=== PATIENT | female | born 1980 | race African-American/Black ===

== ENCOUNTER 2016-06-19 13:59 | Emergency (ER) | payer BC, OTHER ==
[~2016-06-19] VITALS: Ht 172.7 cm; Wt 108.0 kg
[~2016-06-19 13:59] MED LIST: METO25TA7
[2016-06-19 14:02] VITALS: Ht 172.7 cm; Wt 108.0 kg
[2016-06-19] MEDS ORDERED: FAMOTIDINE 20 MG INJ IV STA (14:26)
[2016-06-19] MEDS ORDERED: ONDANSETRON 4 MG INJ IV STA (14:26)
[2016-06-19] MEDS ORDERED: SOD CHLORIDE 0.9% 1,000 ML IV STA (14:26)
[2016-06-19] MEDS ORDERED: morphine 4 MG/ML VIAL IV STA ×2 (14:26→16:24)
[2016-06-19 14:59] LABS: ALBUMIN 4.4 g/dl (3.3-4.9)
[2016-06-19 15:00] LABS: POTASSIUM 3.9 mmol/L (3.5-5.1)
[2016-06-19 15:02] LABS: ALBUMIN/GLOBULIN RATIO 1.41; BILIRUBIN,INDIRECT 0.5 mg/dl (0-1.1); BILIRUBIN,TOTAL 0.5 mg/dl (0.2-1.3); CREATININE 0.66 mg/dl (0.44-1.00); TOTAL PROTEIN 7.5 g/dl (6.1-8.1)
[2016-06-19 15:03] LABS: CALCIUM 9.6 mg/dl (8.4-10.2)
[2016-06-19] MEDS ORDERED: METO50TA16 PO (15:05)
[2016-06-19 15:18] LABS: BASOPHILS % 0.4 % (0.0-2.0); EOSINOPHILS # 0.1 10^3/ul (0.0-0.5); EOSINOPHILS % 0.9 % (0.0-7.0); HEMATOCRIT 35.9 % (37.0-47.0); HEMOGLOBIN 11.9 g/dl (12.0-16.0); LYMPHOCYTES # 2.2 10^3/ul (0.8-2.9); LYMPHOCYTES % 35.3 % (15.0-51.0); MEAN CORPUSCULAR HGB CONC 33.2 g/dl (32.0-37.0); MEAN CORPUSCULAR VOLUME 87.4 fl (82.0-101.0); MEAN PLATELET VOLUME 10.3 fl (7.4-10.4); MONOCYTE # 0.5 10^3/ul (0.3-0.9); MONOCYTES % 8.2 % (0.0-11.0); NEUTROPHIL # 3.4 10^3/ul (1.6-7.5); NEUTROPHILS % 55.2 % (39.0-77.0); PLATELET COUNT 258 10^3/UL (140-440); RED BLOOD COUNT 4.11 10^6/ul (4.20-5.40); RED CELL DISTRIBUTION WIDTH 15.1 % (11.5-14.5); UNCORRECTED WBC 6.2 10^3/ul (4.8-10.8); WHITE BLOOD COUNT 6.2 10^3/ul (4.8-10.8)
[2016-06-19 15:21] LABS: CONDITION 1; LH ANALYZER COMMENTS 1
[2016-06-19 15:29] LABS: ADD UMIC YES; URINE BILIRUBIN (Dip) NEGATIVE (NEGATIVE); URINE BLOOD (Dip) 2+ (NEGATIVE); URINE COLOR LT. YELLOW (YELLOW); URINE GLUCOSE (Dip) NEGATIVE (NEGATIVE); URINE KETONES (Dip) TRACE (NEGATIVE); URINE LEUKOCYTE ESTERASE (Dip) 1+ (NEGATIVE); URINE NITRITE (Dip) NEGATIVE (NEGATIVE); URINE TOTAL PROTEIN (Dip) NEGATIVE (NEGATIVE); URINE UROBILINOGEN (Dip) 0.2 E.U./dL (0.1-1.0)
[2016-06-19 15:41] LABS: BACTERIA,URINE MODERATE; SQUAMOUS EPITHELIAL CELL,UR MANY
--- NOTE | 2016-06-19 17:17 | RADRPT ---
PROCEDURE: CT Abdomen and Pelvis without contrast. CLINICAL INDICATION: Abdominal pain , back pain radiating to right groin TECHNIQUE: CT scan of the abdomen and pelvis without contrast was performed on a multidetector hig h-resolution CT scanner. The patient was scanned without intravenous contrast. No oral contrast was administered. Coronal and sagittal reformatted images were obtained from the axial source images. Im ages were reviewed on a high-resolution PACS workstation. The total exam CTDI equals 22.9 mGy and t he total exam DLP equals 1250.73 mGy-cm. One or more of the following dose reduction techniques were used: - Automated exposure control. - Adjustment of the mA and/or kV according to patient size. - Use of iterative reconstruction technique. COMPARISON: 03/29/2013 FINDINGS: Lungs: Mild dependent atelectasis is seen in the posterior lower lungs. Linear atelectasis/fibrosis is seen at the lung bases. Liver: No abnormality seen. the extreme superior aspect of the lateral segment of the left lobe of the liver is not included in the imaging volume. Gallbladder: No abnormality seen. Spleen: No abnormality seen. Stomach: The stomach is not fully distended. No gross abnormality seen. Pancreas: No abnormality seen. Adrenals: No abnormality seen. Kidneys: No abnormality seen. No renal stone seen. No definite ureteral stone seen. Multiple phle boliths in the pelvis. Abdominal aorta: No aneurysm seen. Lymph nodes: There is nonspecific approximate 1 cm short axis upper right iliac lymph node not signi ficantly changed compared to previous study.. Small bowel: No dilated small bowel loops are seen. Colon: No abnormality seen. Appendix: No abnormality seen. Bladder: No abnormality seen Pelvic organs: No abnormality seen 1.7 cm left ovarian follicle. Ascites: None seen. Osseous structures: Mild degenerative changes at sacroiliac joints. IMPRESSION: No acute abnormality seen. Please see above. RPTAT: HJES .Raymon Ramirez MD, MD Date Time Electronically viewed and signed by .Raymon Ramirez MD, MD on 06/19/2016 17:16 .S/
--- NOTE | 2016-06-19 17:23 | ERD ---
ER Documentation Chief Complaint Date/Time DATE: 06/19/16 TIME: 17:21 Chief Complaint HAS ACTIVE N/V AND LEFT FLANK PAIN HPI This is a 36-year-old female who presents to the emergency room for evaluation of right-sided flank pain. She states that she has had this pain for approximately 1 days duration. She states she is nauseous and also is vomiting. The patient came to the ER for evaluation of her pain, nausea and vomiting. The patient denies being , denies any vaginal bleeding or vaginal discharge. Denies any fevers associated with this. ROS All systems reviewed and are negative except as per history of present illness. Medications Home Meds Reported Medications Metoprolol Succinate* (Toprol XL*) 50 Mg Tab.er.24h, 50 MG PO DAILY, #30 TAB 06/19/16 Discontinued Reported Medications Metoprolol Succinate* (Toprol XL*) 25 Mg Tab.sr.24h 10/12/09 Allergies Allergies: Coded Allergies: No Known Allergy (Verified , 05/27/15) PMhx/Soc History of Surgery: Yes (ABLASION ) Anesthesia Reaction: No Hx Neurological Disorder: No Hx Respiratory Disorders: No Hx Cardiac Disorders: Yes (HTN) Hx Psychiatric Problems: No Hx Miscellaneous Medical Probl: No Hx Alcohol Use: No Hx Substance Use: No Hx Tobacco Use: No Smoking Status: Never smoker Physical Exam Vitals Vital Signs Date Time Temp Pulse Resp B/P Pulse Ox O2 Delivery O2 Flow Rate FiO2 06/19/16 14:02 98.6 77 18 121/56 100 Physical Exam INITIAL VITAL SIGNS: Reviewed by me GENERAL: The patient is well developed and appropriate for usual state of health in no apparent distress HEENT: Pupils equal, round, and reactive to light. EOMI. There is no scleral icterus. NECK: C-spine is soft and supple, there is no meningismus. There is no cervical lymphadenopathy. LUNGS: Clear to auscultation bilaterally. There are no rales, wheezes or rhonchi. HEART: Regular rate and rhythm, no murmurs, clicks, rubs or gallops. ABDOMEN: Right-sided CVAT, otherwise soft, non-tender, non-distended. There are bowel sounds in all four quadrants. No rebound or guarding. EXTREMITIES: There is no peripheral cyanosis or edema. No focal swelling or erythema. NEUROLOGICAL: The patient moves all four extremities with 5/5 strength. Cranial nerves II - XII are intact. Normal gait. Alert and oriented SKIN: There is no apparent rash or petechiae. HEME/LYMPHATIC: There is no evidence of excessive bruising or lymphedema. PSYCHIATRIC: The patient does not appear anxious or depressed. Result Diagram: 06/19/16 1433 06/19/16 1433 Results 24 hrs Laboratory Tests Test 06/19/16 14:33 06/19/16 14:41 Alanine Aminotransferase (ALT/SGPT) 22IU/L Albumin 4.4g/dl Albumin/Globulin Ratio 1.41 Alkaline Phosphatase 64IU/L Anion Gap 14 Aspartate Amino Transf (AST/SGOT) 16IU/L Basophils # 0.010^3/ul Basophils % 0.4% Blood Morphology Comment Blood Urea Nitrogen 12mg/dl Calcium Level 9.6mg/dl Carbon Dioxide Level 28mmol/L Chloride Level 104mmol/L Creatinine 0.66mg/dl Direct Bilirubin 0.00mg/dl Eosinophils # 0.110^3/ul Eosinophils % 0.9% Globulin 3.10g/dl Glucose Level 86mg/dl Hematocrit 35.9% Hemoglobin 11.9g/dl Indirect Bilirubin 0.5mg/dl Lipase 53U/L Lymphocytes # 2.210^3/ul Lymphocytes % 35.3% Mean Corpuscular Hemoglobin 29.0pg Mean Corpuscular Hemoglobin Concent 33.2g/dl Mean Corpuscular Volume 87.4fl Mean Platelet Volume 10.3fl Monocytes # 0.510^3/ul Monocytes % 8.2% Neutrophils # 3.410^3/ul Neutrophils % 55.2% Nucleated Red Blood Cells # 0.010^3/ul Nucleated Red Blood Cells % 0.0/100WBC Platelet Count 86428^3/UL Potassium Level 3.9mmol/L Red Blood Count 4.1110^6/ul Red Cell Distribution Width 15.1% Sodium Level 142mmol/L Total Bilirubin 0.5mg/dl Total Protein 7.5g/dl White Blood Count 6.210^3/ul Urine Bacteria MODERATE Urine Bilirubin NEGATIVE Urine Clarity SLIGHTLY CLOUDY Urine Color LT. YELLOW Urine Glucose NEGATIVE% Urine Hemoglobin 2+ Urine Ketones TRACE Urine Leukocyte Esterase 1+ Urine Microscopic RBC 10-25/HPF Urine Microscopic WBC 2-5/HPF Urine Nitrite NEGATIVE Urine Specific [place] >=1.030 Urine Squamous Epithelial Cells MANY Urine Total Protein NEGATIVE Urine Urobilinogen 0.2 E.U./dL Urine pH 5.5 Current Medications Medications (Trade) Dose Ordered Sig/Sol Route PRN Reason Start Time Stop Time Status Last Admin Dose Admin Sodium Chloride (NS) 1,000 ml @ 1,000 mls/hr Q1H STAT IV 06/19/16 14:26 06/19/16 15:25 DC 06/19/16 14:40 Morphine Sulfate (morphine) 4 mg ONCE STAT IV 06/19/16 14:26 06/19/16 14:27 DC 06/19/16 14:41 Ondansetron HCl (Zofran Inj) 4 mg ONCE STAT IV 06/19/16 14:26 06/19/16 14:27 DC 06/19/16 14:40 Famotidine (Pepcid Iv) 20 mg ONCE STAT IV 06/19/16 14:26 06/19/16 14:27 DC 06/19/16 14:40 Morphine Sulfate (morphine) 4 mg ONCE STAT IV 06/19/16 16:24 06/19/16 16:25 DC 06/19/16 16:29 Procedures/MDM CT abdomen pelvis without: No acute abnormality This 36-year-old female presents to the ER for evaluation of right-sided flank pain. This patient did have some tenderness to palpation on my examination. She was writhing in bed when I originally saw her. She was given morphine with resolution of her pain. Lab work is within normal limits, urinalysis shows trace leukocyte esterase, however I do not feel that this is a significant cause of her pain. The patient states she is feeling better at this time will be discharged home with a prescription for ciprofloxacin for the course of 3 days, and [place] for breakthrough pain. Differential diagnoses entertained was broad with potential high acuity. Patient has been evaluated for appendicitis, cholecystitis, and other high risk medical and surgical causes of abdominal pain. Ultimately the patient's evaluation is nondiagnostic. Based on the patient's lack of risk factors, as well as the patient's clinical, laboratory, and imaging data, the patient appears to be low risk for these high risk causes of abdominal pain. Departure Diagnosis: Primary Impression: Nausea and vomiting Additional Impressions: Normocytic anemia Right flank pain Condition: Stable JAMES CHUNG DO Jun 19, 2016 17:23
[2016-06-19] MEDS ORDERED: HYDR-906 PO (17:30)
[2016-06-19] MEDS ORDERED: CIPR500T4 PO (17:30)
[2016-06-19 17:44] VITALS: BP 116/56; PULSE 69; RESP 18; TEMP 98.4
== END 2016-06-19 17:46 | disposition home or self-care (01) ==
LOC: E/R 13:59
DX: R11.2 Nausea with vomiting, unspecified (principal); D64.9 Anemia, unspecified; R10.9 Unspecified abdominal pain; I10 Essential (primary) hypertension
CPT/HCPCS: 74176; 80053; 81001; 83690; 84703; 85025; J2270; J2405; J7030; 36415; 81003; 96374; 96375; 96376